=== PATIENT | female | born 1970 | race Caucasian/White ===

== ENCOUNTER 2023-11-11 15:48 | Outpatient (CLI) | payer BC | END 2023-11-11 15:49 | disposition home or self-care (01) | LOC: BICRAD 15:48 | PROVIDERS: ATTEND Nurse Practitioner Family | DX: M25.512 Pain in left shoulder (principal) ==

== ENCOUNTER 2024-02-29 15:06 | Outpatient (CLI) | payer BC | END 2024-02-29 15:07 | disposition home or self-care (01) | LOC: BICMAMMO 15:06 | PROVIDERS: ATTEND Nurse Practitioner Family | DX: Z12.31 Encounter for screening mammogram for malignant neoplasm of breast (principal); Z91.89 Other specified personal risk factors, not elsewhere classified; Z98.82 Breast implant status | CPT/HCPCS: 77063; 77067 ==

== ENCOUNTER 2024-04-11 09:04 | Outpatient (CLI) | payer BC | END 2024-04-11 09:05 | disposition home or self-care (01) | LOC: MRI 09:04 | PROVIDERS: ATTEND Nurse Practitioner Family | DX: M54.12 Radiculopathy, cervical region (principal); M48.02 Spinal stenosis, cervical region | CPT/HCPCS: 72141 ==

== ENCOUNTER 2024-08-22 14:53 | Outpatient (CLI) | payer BC | END 2024-08-22 14:54 | disposition home or self-care (01) | LOC: CT 14:53 | PROVIDERS: ATTEND Family Medicine | DX: M25.551 Pain in right hip (principal); H74.91 Unspecified disorder of right middle ear and mastoid; J32.0 Chronic maxillary sinusitis; J32.2 Chronic ethmoidal sinusitis; W19.XXXA Unspecified fall, initial encounter | CPT/HCPCS: 70450 ==

== ENCOUNTER 2024-10-18 12:00 | Outpatient (CLI) | payer BC | END 2024-10-18 12:01 | disposition home or self-care (01) | LOC: BICULT 12:00 | PROVIDERS: ATTEND Nurse Practitioner Family | DX: M79.89 Other specified soft tissue disorders (principal); D17.39 Benign lipomatous neoplasm of skin and subcutaneous tissue of other sites | CPT/HCPCS: 76999 ==

== ENCOUNTER 2024-10-29 08:49 | Outpatient (CLI) | payer BC ==
[2024-10-29] MEDS ORDERED: Regadenoson 0.4 MG/5 ML SYRINGE ONE (10:58)
== END 2024-10-29 08:50 | disposition home or self-care (01) ==
LOC: NM 08:49
PROVIDERS: ATTEND Internal Medicine
DX: R07.9 Chest pain, unspecified (principal); R00.2 Palpitations; R55 Syncope and collapse; R06.02 Shortness of breath
CPT/HCPCS: 78452; 93017; A9502; J2785

== ENCOUNTER 2024-11-16 09:39 | Inpatient (IN) | payer BC ==
[2024-11-16] MEDS ORDERED: Aspirin Chewable 81 MG TAB ONE (11:50)
[2024-11-16] MEDS ORDERED: Morphine 4 MG/ML VIAL ONE (11:50)
[2024-11-16 12:25] LABS: #Basophils 0.04 10x3/uL (0.0-0.2); %Basophils 0.7 % (0.0-1.0); %Eosinophils 12.7 % (0.0-10.0); %Lymphocytes 32.3 % (21.0-51.0); %Monocytes 6.2 % (0.0-10.0); %Neutrophils 47.9 % (42.0-75.0); Hematocrit 33.5 % (36.0-47.0); Hemoglobin 11.4 g/dL (12.0-16.0); Mean Corpuscular Hemoglobin 30.7 pg (27.0-31.0); Mean Corpuscular Volume 90.3 fL (78.0-98.0); Mean Platelet Volume 10.1 fL (7.4-10.4); Platelet Count 211 10x3/uL (130-400); RBC Distribution Width 12.1 % (11.5-14.5); Red Blood Cell (RBC) Count 3.71 mill/uL (4.20-5.40)
[2024-11-16 12:52] LABS: ALT (SGPT) 24 U/L (Less than 34); AST (SGOT) 29 U/L (11-34); Alkaline Phosphatase 78 U/L (40-110); Anion Gap 11 mmol/L (10-20); BUN (Urea Nitrogen) 8 mg/dL (9.8-20.1); Bilirubin, Total 0.7 mg/dL (0.3-1.2); Calc. Creatinine Clearance 0 mL/min (70-130); Calcium 9.2 mg/dL (7.8-10.44); Carbon Dioxide 28 mmol/L (22-29); Chloride 107 mmol/L (98-107); Estimated GFR 75; Globulin 3.3 g/dL (2.4-3.5); Glucose 107 mg/dL (70-105); Potassium 3.9 mmol/L (3.5-5.1); Protein, Total 7.3 g/dL (6.0-8.3); Sodium 142 mmol/L (136-145); Troponin I Less than 0.010 ng/mL (< 0.028)
[2024-11-16] MEDS ORDERED: Iopamidol 370 76% 100 ML VIAL ONE (13:19)
[2024-11-16] MEDS ORDERED: Nitroglycerin 2% Ointment 1 INCH/1 GM Packet ONE (14:42)
[2024-11-16 14:58] LABS: Troponin I Less than 0.010 ng/mL (< 0.028)
[2024-11-16] MEDS ORDERED: Acetaminophen 650 MG Suppository PR PRN (16:09)
[2024-11-16] MEDS ORDERED: Nitroglycerin 0.4 MG TAB (25 Tab Bottle) SL PRN (16:09)
[2024-11-16] MEDS ORDERED: Ondansetron ODT 4 MG TAB PO PRN (16:09)
[2024-11-16] MEDS ORDERED: Acetaminophen 325 MG TAB PO PRN (16:09)
[2024-11-16] MEDS: Morphine 2 MG/ML VIAL SLOW IVP PRN (16:43)
[2024-11-16 16:48] VITALS: BMI 25.7
[2024-11-16 19:08] LABS: Troponin I Less than 0.010 ng/mL (< 0.028)
[2024-11-16] MEDS: Rosuvastatin 20 MG TAB PO SCH (21:06)
[2024-11-16] MEDS: QUEtiapine 300 MG TAB PO SCH (21:06)
[2024-11-16] MEDS: Nitroglycerin 2% Ointment 1 INCH/1 GM Packet TOP SCH (21:07)
[2024-11-17 04:54] LABS: #Basophils 0.04 10x3/uL (0.0-0.2); %Basophils 0.6 % (0.0-1.0); %Eosinophils 11.9 % (0.0-10.0); %Lymphocytes 39.8 % (21.0-51.0); %Neutrophils 40.7 % (42.0-75.0); Hematocrit 32.9 % (36.0-47.0); Hemoglobin 10.9 g/dL (12.0-16.0); Mean Corpuscular HGB CONC 33.1 g/dL (32.0-36.0); Mean Corpuscular Hemoglobin 29.9 pg (27.0-31.0); Mean Corpuscular Volume 90.4 fL (78.0-98.0); Mean Platelet Volume 9.8 fL (7.4-10.4); Platelet Count 202 10x3/uL (130-400); RBC Distribution Width 12.1 % (11.5-14.5); Red Blood Cell (RBC) Count 3.64 mill/uL (4.20-5.40)
[2024-11-17 05:18] LABS: Anion Gap 10 mmol/L (10-20); BUN (Urea Nitrogen) 14 mg/dL (9.8-20.1); Calc. Creatinine Clearance 75 mL/min (70-130); Calcium 8.9 mg/dL (7.8-10.44); Carbon Dioxide 26 mmol/L (22-29); Chloride 105 mmol/L (98-107); Estimated GFR 69; Glucose 96 mg/dL (70-105); Potassium 3.8 mmol/L (3.5-5.1); Sodium 137 mmol/L (136-145)
[2024-11-17] MEDS: Enoxaparin 40 MG (0.4 mL) SYRINGE SC SCH (08:15)
[2024-11-17] MEDS: Metoprolol Succinate XL 25 MG ER.TAB PO SCH (08:15)
[2024-11-17] MEDS: Aspirin Chewable 81 MG TAB PO SCH (08:15)
[2024-11-17] MEDS: Ondansetron PF 4 MG/2 ML Vial IVP PRN (16:33)
[2024-11-18] MEDS: Sertraline 100 MG TAB PO SCH (08:32)
[2024-11-18] MEDS ORDERED: Spironolactone 25 MG TAB PO SCH (09:00)
[2024-11-19] MEDS: Sodium Chloride 0.9% 500 ML IV SCH ×2 (00:26→13:20)
[2024-11-19] MEDS ORDERED: Diazepam 5 MG TAB PO SCH (04:00)
[2024-11-19] MEDS ORDERED: Iopamidol 370 76% 100 ML VIAL ONE (09:04)
[2024-11-19] MEDS ORDERED: fentaNYL 50 mcg/mL 1 mL Vial ONE (11:18)
[2024-11-19] MEDS ORDERED: Midazolam HCl 2 mg/2 ml Vial ONE (11:18)
[2024-11-19] MEDS: Communication Order-Pharmacy FS SCH (11:30)
[2024-11-19] MEDS ORDERED: Sodium Chloride 0.9% 200 ML IV PRN (12:00)
[2024-11-19] MEDS ORDERED: traMADol HCl 50 MG TAB PO PRN (12:36)
[2024-11-19 16:36] VITALS: BP 109/65; TEMP 98.6
== END 2024-11-19 17:51 | disposition home or self-care (01) | DRG 287 ==
LOC: ERS 09:39 → OBS 16:05 → OBSVTOIN 16:14
PROVIDERS: ADMIT Student in an Organized Health Care Education/Training Program; ATTEND Hospitalist
PROC: 4A023N7 Measurement of Cardiac Sampling and Pressure, Left Heart, Percutaneous Approach (ICD-10-PCS; principal; 2024-11-19)
PROC: B2111ZZ Fluoroscopy of Multiple Coronary Arteries using Low Osmolar Contrast (ICD-10-PCS; 2024-11-19)
PROC: B2151ZZ Fluoroscopy of Left Heart using Low Osmolar Contrast (ICD-10-PCS; 2024-11-19)
DX: R07.9 Chest pain, unspecified (principal); I24.9 Acute ischemic heart disease, unspecified; I10 Essential (primary) hypertension; E78.5 Hyperlipidemia, unspecified; F31.9 Bipolar disorder, unspecified; D64.9 Anemia, unspecified; E87.6 Hypokalemia; Z98.890 Other specified postprocedural states; Z90.710 Acquired absence of both cervix and uterus; Z87.891 Personal history of nicotine dependence; Z88.8 Allergy status to other drugs, medicaments and biological substances; Z91.018 Allergy to other foods; Z88.5 Allergy status to narcotic agent
CPT/HCPCS: 36415; 71045; 71275; 80048; 80053; 83735; 83880; 84484; 85025; 93005; 93458; 94760; 96374; 99152; C1769; C1887; J1650; J2250; J2270; J2272; J2405; J3010; Q9967

== ENCOUNTER 2025-04-24 06:28 | Day surgery (SDC) | payer BC ==
[2025-04-23 11:05] VITALS: BMI 24.1
[2025-04-24] MEDS ORDERED: Lidocaine 1% w/Epinephrine 1:100K 20 ML VIAL ONE (08:02)
== END 2025-04-24 09:08 | disposition home or self-care (01) ==
LOC: CCL 06:28
PROVIDERS: ATTEND Internal Medicine Cardiovascular Disease
DX: R55 Syncope and collapse (principal); R07.89 Other chest pain; I10 Essential (primary) hypertension; R00.2 Palpitations; I50.30 Unspecified diastolic (congestive) heart failure; E78.00 Pure hypercholesterolemia, unspecified; Z79.899 Other long term (current) drug therapy; Z88.5 Allergy status to narcotic agent; Z88.8 Allergy status to other drugs, medicaments and biological substances
CPT/HCPCS: 33285

== ENCOUNTER 2025-07-11 08:12 | Observation (INO) | payer BC ==
[2025-07-11 11:11] LABS: #Basophils 0.04 10x3/uL (0.0-0.2); #Eosinophils 0.80 10x3/uL (0.0-0.7); #Monocytes 0.50 10x3/uL (0.11-0.59); #Neutrophils 2.67 10x3/uL (1.40-6.50); %Basophils 0.6 % (0.0-1.0); %Eosinophils 12.8 % (0.0-10.0); %Lymphocytes 36.0 % (21.0-51.0); %Monocytes 8.0 % (0.0-10.0); %Neutrophils 42.6 % (42.0-75.0); Hematocrit 36.9 % (36.0-47.0); Hemoglobin 12.3 g/dL (12.0-16.0); Mean Corpuscular Hemoglobin 29.7 pg (27.0-31.0); Mean Corpuscular Volume 89.1 fL (78.0-98.0); Platelet Count 231 10x3/uL (130-400); Red Blood Cell (RBC) Count 4.14 mill/uL (4.20-5.40); White Blood Cell (WBC) Count 6.27 10x3/uL (4.8-10.8)
[2025-07-11] MEDS ORDERED: Iopamidol-370 76% 500 ML MDV (1 ML CHARGE) ONE (11:21)
[2025-07-11 11:26] LABS: INR-International Normal Ratio 1.1; Prothrombin Time 13.8 sec (12.0-14.7)
[2025-07-11 11:27] LABS: PTT 36.0 sec (22.9-36.1)
[2025-07-11 11:35] LABS: ALT (SGPT) 13 U/L (Less than 34); AST (SGOT) 28 U/L (11-34); Albumin 4.7 g/dL (3.1-4.5); Alkaline Phosphatase 84 U/L (40-110); Anion Gap 18 mmol/L (10-20); BUN (Urea Nitrogen) 15 mg/dL (9.8-20.1); Bilirubin, Total 0.8 mg/dL (0.3-1.2); Calc. Creatinine Clearance 0 mL/min (70-130); Calcium 9.9 mg/dL (7.8-10.44); Carbon Dioxide 30 mmol/L (22-29); Chloride 99 mmol/L (98-107); Globulin 3.2 g/dL (2.4-3.5); Glucose 88 mg/dL (70-105); Potassium 3.6 mmol/L (3.5-5.1); Sodium 143 mmol/L (136-145)
[2025-07-11] MEDS ORDERED: Metoclopramide HCl 10 MG (2 mL) VIAL ONE (14:05)
[2025-07-11] MEDS ORDERED: Ketorolac Tromethamine 30 MG (1 mL) VIAL ONE (14:05)
[2025-07-11] MEDS ORDERED: Aspirin Chewable 81 MG TAB ONE (14:41)
[2025-07-11] MEDS ORDERED: hydrALAZINE 20 MG/ML VIAL SLOW IVP PRN (16:14)
[2025-07-11] MEDS ORDERED: Ondansetron PF 4 MG/2 ML Vial IVP PRN (16:14)
[2025-07-11] MEDS ORDERED: Acetaminophen 325 MG TAB PO PRN (16:14)
[2025-07-11 18:32] VITALS: BMI 23.8
[2025-07-11] MEDS: Nitroglycerin 0.4 MG TAB (25 Tab Bottle) SL PRN (18:39)
[2025-07-11] MEDS ORDERED: Melatonin 3 MG TAB PO PRN (20:49)
[2025-07-12 04:11] LABS: #Basophils 0.04 10x3/uL (0.0-0.2); #Eosinophils 0.90 10x3/uL (0.0-0.7); #Monocytes 0.56 10x3/uL (0.11-0.59); #Neutrophils 2.68 10x3/uL (1.40-6.50); %Basophils 0.6 % (0.0-1.0); %Eosinophils 13.2 % (0.0-10.0); %Lymphocytes 38.3 % (21.0-51.0); %Monocytes 8.2 % (0.0-10.0); %Neutrophils 39.4 % (42.0-75.0); Hematocrit 34.3 % (36.0-47.0); Hemoglobin 11.6 g/dL (12.0-16.0); Mean Corpuscular Hemoglobin 29.9 pg (27.0-31.0); Mean Corpuscular Volume 88.4 fL (78.0-98.0); Platelet Count 216 10x3/uL (130-400); Red Blood Cell (RBC) Count 3.88 mill/uL (4.20-5.40); White Blood Cell (WBC) Count 6.81 10x3/uL (4.8-10.8)
[2025-07-12 04:26] LABS: Anion Gap 16 mmol/L (10-20); BUN (Urea Nitrogen) 17 mg/dL (9.8-20.1); Calc. Creatinine Clearance 62 mL/min (70-130); Calcium 9.1 mg/dL (7.8-10.44); Carbon Dioxide 27 mmol/L (22-29); Cardiac Risk 3.0 (Less than 4.5); Chloride 100 mmol/L (98-107); Cholesterol 107 mg/dl (< 200 Desired); Glucose 101 mg/dL (70-105); HDL Cholesterol 36 mg/dL (>60 Neg Risk); LDL Cholesterol, Calculated 35 mg/dL; Magnesium 2.0 mg/dL (1.6-2.6); Potassium 2.9 mmol/L (3.5-5.1); Sodium 140 mmol/L (136-145); Triglycerides 180 mg/dL (Less than 150)
[2025-07-12 08:36] LABS: Magnesium 2.0 mg/dL (1.6-2.6)
[2025-07-12] MEDS: Rosuvastatin 20 MG TAB PO SCH (09:01)
[2025-07-12] MEDS: Pantoprazole 40 MG DR.TAB PO SCH (09:01)
[2025-07-12] MEDS: Sertraline 100 MG TAB PO SCH (09:02)
[2025-07-12] MEDS: Potassium Bicarbonate/Cit Ac 20 MEQ TAB PO SCH (12:43)
[2025-07-12] MEDS: Metoprolol Succinate XL 25 MG ER.TAB PO SCH (15:42)
[2025-07-12 16:19] VITALS: BP 114/66; TEMP 98.2
[2025-07-12] MEDS ORDERED: QUEtiapine 300 MG TAB PO SCH (21:00)
[2025-07-12] MEDS ORDERED: Aspirin 81 mg Enteric Coated Tablet PO SCH (21:00)
[2025-07-13] MEDS ORDERED: Rosuvastatin 20 MG TAB PO SCH (09:00)
== END 2025-07-12 18:33 | disposition home or self-care (01) ==
LOC: ERS 08:12 → ERHOLD 15:32 → 2SE 17:53
PROVIDERS: ADMIT Internal Medicine; ATTEND Internal Medicine
DX: R20.2 Paresthesia of skin (principal); R29.810 Facial weakness; I10 Essential (primary) hypertension; E78.5 Hyperlipidemia, unspecified; Z88.8 Allergy status to other drugs, medicaments and biological substances; Z91.018 Allergy to other foods; Z88.5 Allergy status to narcotic agent; Z79.899 Other long term (current) drug therapy
CPT/HCPCS: 36415; 70496; 70498; 70551; 80048; 80053; 80061; 83735; 84443; 84484; 85025; 85610; 85730; 93005; 93010; 94760; 95700; 95711; 95957; 96365; 96375; G0378; J1885; J2765; Q9967

== ENCOUNTER 2025-08-13 11:59 | Outpatient (CLI) | payer BC | END 2025-08-13 12:00 | disposition home or self-care (01) | LOC: BICRAD 11:59 | PROVIDERS: ATTEND Nurse Practitioner Family | DX: S22.089D Unspecified fracture of T11-T12 vertebra, subsequent encounter for fracture with routine healing (principal); M41.9 Scoliosis, unspecified | CPT/HCPCS: 72072 ==